=== PATIENT | female | born 2000 | race African-American/Black ===

== ENCOUNTER 2025-07-10 01:28 | Emergency (ER) | payer MEDICAID ==
[~2025-07-10] VITALS: Ht 170.2 cm; Wt 110.6 kg
[2025-07-10 01:49] VITALS: O2SAT 99
[2025-07-10 01:50] VITALS: BP 176/107; PULSE 114; RESP 14; TEMP 36.8; O2SAT 98
== END 2025-07-10 02:05 | disposition left against medical advice (07) ==
LOC: ER 01:28
DX: R68.83 Chills (without fever) (principal); Z53.21 Procedure and treatment not carried out due to patient leaving prior to being seen by health care provider